=== PATIENT | female | born 1980 | race Hispanic/Latino ===

== ENCOUNTER 2018-01-21 17:05 | Emergency (ER) | payer OTHER ==
[2018-01-21 17:15] VITALS: O2SAT 99
[2018-01-21 18:19] LABS: BASO # 0.1 K/uL (0.0-0.2); BASO % 1.2 % (0.0-2.0); EOS # 0.1 K/uL (0.0-0.7); EOS % 1.5 % (0.0-4.0); HEMOGLOBIN 12.5 g/dL (12.0-16.0); LYMPH # 2.2 K/uL (1.0-4.3); LYMPH % 29.2 % (20.0-40.0); MEAN CORPUSCULAR HEMOGLOBIN 29.9 pg (27.0-31.0); MONO # 0.5 K/uL (0.0-0.8); MONO % 6.3 % (0.0-10.0); NEUT # 4.8 K/uL (1.8-7.0); NEUT % 61.8 % (50.0-75.0); NRBC % 0.1 % (0.0-0.0); RBC 4.16 Mil/uL (3.80-5.20); WHITE BLOOD COUNT 7.7 K/uL (4.8-10.8)
[2018-01-21] MEDS: Lactated Ringer's 1,000 ML IV SCH ×3 (18:25→20:36)
[2018-01-21 18:27] LABS: ALB/GLOB RATIO 1.1 (1.0-2.1); ALBUMIN 3.8 g/dL (3.5-5.0); ALT/SGPT 32 U/L (9-52); AST/SGOT 27 U/L (14-36); BLOOD UREA NITROGEN 14 mg/dl (7-17); CALCIUM 9.2 mg/dL (8.4-10.2); GFR AFRICAN-AMERICAN > 60; GFR NON-AFRICAN AMERICAN > 60
[2018-01-21 19:01] LABS: SQUAMOUS EPITHIAL 1 /hpf (0-5); URINE BACTERIA RARE (<OCC); URINE BILIRUBIN NEGATIVE (NEGATIVE); URINE BLOOD NEGATIVE (NEGATIVE); URINE CLARITY CLEAR (Clear); URINE COLOR YELLOW (YELLOW); URINE GLUCOSE (UA) NEG (Normal); URINE LEUKOCYTE ESTERASE NEG Leu/uL (Negative); URINE PROTEIN NEGATIVE (NEGATIVE)
--- NOTE | 2018-01-21 19:59 | ED PDOC ---
HPI:Nausea, Vomiting, Diarrhea Time Seen by Provider: 01/21/18 17:11 Chief Complaint (Nursing): GI Problem Past Medical History Vital Signs: Last Vital Signs Temp 98.2 F 01/21/18 17:12 Pulse 77 01/21/18 17:12 Resp 16 01/21/18 17:12 BP 121/86 01/21/18 17:12 Pulse Ox 99 01/21/18 17:12 - Home Medications Home Medications: Ambulatory Orders Medication Instructions Recorded Metoclopramide [Reglan] 5 mg PO Q8H #30 tab 01/21/18 - Allergies Allergies/Adverse Reactions: Allergies Allergy/AdvReac Type Severity Reaction Status Date / Time No Known Allergies Allergy Verified 01/21/18 17:12 - Laboratory Results Result Diagrams: 01/21/18 18:08 01/21/18 18:08 - ECG O2 Sat by Pulse Oximetry: 99 Medical Decision Making Medical Decision Making: Discussed labs with patients OB Dr. Lorenzo. Follow-up with Dr. Lorenzo next week. Will give Rx for reglan. Disposition - Clinical Impression Clinical Impression: Hyperemesis gravidarum - Patient ED Disposition Is Patient to be Admitted: No Counseled Patient/Family Regarding: Diagnosis, Need For Followup, Rx Given - Disposition Referrals: Katina Lorenzo MD [Medical Doctor] - Disposition: Routine/Home Disposition Time: 19:58 Condition: STABLE Prescriptions: Metoclopramide [Reglan] 5 mg PO Q8H #30 tab Instructions: Hyperemesis Gravidarum
[2018-01-21 20:20] VITALS: BP 122/70; PULSE 71; RESP 18; TEMP 98.1
== END 2018-01-21 20:51 | disposition home or self-care (01) ==
LOC: H.ER 17:05
DX: O21.0 Mild hyperemesis gravidarum (principal)
CPT/HCPCS: 80053; 81003; 84439; 84443; 85025; 87086; 96361; 96374; 99284; J2765; J7120

== ENCOUNTER 2018-02-28 04:43 | Emergency (ER) | payer OTHER ==
[2018-02-28 04:57] VITALS: RESP 16; O2SAT 98
--- NOTE | 2018-02-28 05:12 | ED PDOC ---
HPI: Female Pain Time Seen by Provider: 02/28/18 04:58 Chief Complaint (Nursing): Female Genitourinary History Per: Patient History/Exam Limitations: no limitations Additional Complaint(s): 37 yo F 15 wks , c/o small amount of vaginal bleeding early this morning without abdominal pain. Reports no fever, chills, N/V, urinary symptoms. Has had a prior US, has care. Past Medical History Vital Signs: Last Vital Signs Temp 98.5 F 02/28/18 04:54 Pulse 70 02/28/18 04:54 Resp 16 02/28/18 04:54 BP 126/59 L 02/28/18 04:54 Pulse Ox 98 02/28/18 04:54 - Family History Family History: States: Unknown Family Hx - Home Medications Home Medications: Ambulatory Orders Medication Instructions Recorded Metoclopramide [Reglan] 5 mg PO Q8H #30 tab 01/21/18 - Allergies Allergies/Adverse Reactions: Allergies Allergy/AdvReac Type Severity Reaction Status Date / Time No Known Allergies Allergy Verified 02/28/18 04:53 Review of Systems Constitutional: Negative for: Fever, Malaise Gastrointestinal: Negative for: Vomiting, Abdominal Pain Genitourinary Female: Positive for: Vaginal Bleeding. Negative for: Dysuria, Frequency Skin: Negative for: Rash, Lesions Physical Exam - Reviewed Vital Signs Reviewed: Yes - Physical Exam Appears: Positive for: Well, Non-toxic, No Acute Distress Head Exam: Positive for: ATRAUMATIC, NORMAL INSPECTION, NORMOCEPHALIC Skin: Positive for: Normal Color, Warm, DRY ENT: Positive for: Normal ENT Inspection Neck: Positive for: Normal, Painless ROM, Supple Cardiovascular/Chest: Positive for: Regular Rate, Rhythm Respiratory: Positive for: CNT, Normal Breath Sounds Gastrointestinal/Abdominal: Positive for: Normal Exam, Soft. Negative for: Tenderness Back: Positive for: Normal Inspection. Negative for: L CVA Tenderness, R CVA Tenderness, Vertebral Tenderness Extremity: Positive for: Normal ROM. Negative for: Tenderness, Swelling Neurologic/Psych: Positive for: Alert, hip hop dancer II-XII, Oriented. Negative for: Motor/Sensory Deficits - Laboratory Results Result Diagrams: 02/28/18 05:25 02/28/18 05:25 - ECG O2 Sat by Pulse Oximetry: 98 Medical Decision Making Medical Decision Making: Impression : threatened ab Plan : - Labs - IV - UA - US pelvic OB 0600 US still pending at this time. Patient laying in bed comfortably in no acute distress, reports no abdominal pain or increase in vaginal bleeding. Disposition - Clinical Impression Clinical Impression: Vaginal bleeding before 22 weeks gestation - Disposition Referrals: Katina Lorenzo MD [Primary Care Provider] - Disposition: Transfer of Care (Care endorsed from Dr. Mendez Costa to Dr. Riana Forrest at 0700 pending type&screen and ultrasound.) Disposition Time: 06:00 Condition: IMPROVED Additional Instructions: follow up with your primary furniture refinisher take vitamins with iron return to the ED with any worsening or concerning symptoms Instructions: Bleeding With (DC) Forms: [employer] ([place]) - PA / RESIDENTIAL CARE FACILITY MANAGER / Resident Statement MD/DO has reviewed & agrees with the documentation as recorded.
[2018-02-28 05:49] LABS: BASO % 0.8 % (0.0-2.0); EOS # 0.1 K/uL (0.0-0.7); EOS % 1.6 % (0.0-4.0); HEMOGLOBIN 11.3 g/dL (12.0-16.0); LYMPH # 1.8 K/uL (1.0-4.3); LYMPH % 31.8 % (20.0-40.0); MEAN CELL VOLUME 87.3 fl (81.0-99.0); MEAN CORPUSCULAR HEMOGLOBIN 30.2 pg (27.0-31.0); MEAN CORPUSCULAR HGB CONC 34.6 g/dL (33.0-37.0); MEAN PLATELET VOLUME 7.2 fl (7.2-11.7); MONO # 0.4 K/uL (0.0-0.8); MONO % 7.2 % (0.0-10.0); NEUT # 3.2 K/uL (1.8-7.0); NEUT % 58.6 % (50.0-75.0); RBC 3.74 Mil/uL (3.80-5.20); RED CELL DISTRIBUTION WIDTH 13.3 % (11.5-14.5); WHITE BLOOD COUNT 5.5 K/uL (4.8-10.8)
[2018-02-28 05:58] LABS: BLOOD UREA NITROGEN 12 mg/dl (7-17); CALCIUM 8.9 mg/dL (8.4-10.2); GFR AFRICAN-AMERICAN > 60; GFR NON-AFRICAN AMERICAN > 60
--- NOTE | 2018-02-28 07:33 | ED PDOC ---
- Laboratory Results Result Diagrams: 02/28/18 05:25 02/28/18 05:25 - ECG O2 Sat by Pulse Oximetry: 98 Medical Decision Making Medical Decision Makin:00 Patient care endorsed from Dr. Mendez Costa to Dr. Riana Forrest pending type and screen and an ultra sound. 07:42 US OB FINDINGS: There is a latham fetus in the breech and transverse presentation. The heart rate was measured at 137 to 140 beats per minute. The average ultrasound age was measured at 15 weeks and 2 days. There's an adequate amount of amniotic fluid. The placenta is anterior in location. No placenta previa. The cervix is closed and measures 4.7 cm. IMPRESSION: 1. IUP as described. 09:14 Patient is RH positive. Pt aware of slight anemia, and is stable for discharge and outpatient follow up. Urine dip shows no infection. Scribe Attestation: Documented by Jina Gordon, acting as a scribe for Riana Forrest MD Provider Scribe Attestation: All medical entries made by the Scribe were at my direction and personally dictated by me. I have reviewed the chart and agree that the record accurately reflects my personal performance of the history, physical exam, medical decision making, and the department course for this patient. I have also personally directed, reviewed, and agree with the discharge instructions and disposition. Disposition - Clinical Impression Clinical Impression: Vaginal bleeding before 22 weeks gestation - POA Present On Arrival: None - Disposition Referrals: Katina Lorenzo MD [Primary Care Provider] - Disposition: Routine/Home Disposition Time: 09:00 Condition: IMPROVED Additional Instructions: follow up with your primary entry level business analyst take vitamins with iron return to the ED with any worsening or concerning symptoms Instructions: Bleeding With (DC) Forms: [employer] (Telugu)
[2018-02-28 09:39] VITALS: BP 114/62; PULSE 66; TEMP 98.4
--- NOTE | 2018-02-28 10:46 | US ---
PROCEDURE: Second trimester ultrasound HISTORY: 15 wks preg, vag bleeding COMPARISON: None available. TECHNIQUE: Standard protocol for this study/examination. FINDINGS: Variable presentation. Anterior Placenta. No evidence of abruption or previa Gestational age derived from LMP 15 weeks. GEOFF 08/22/2018. Gestational age derived from the following biometric parameters 15 weeks 2 days. GEOFF 08/20/2018. Biparietal diameter 3.01 cm Head circumference 11.04 cm Abdominal circumference 8.71 cm Femur length 1.76 cm Estimated weight 115.6 g Calculated cardiac rate 139 beats per min. Closed cervix measuring 4.70 cm IMPRESSION: Fifteen weeks 2 days live intrauterine gestation. Gestational concordance documented. Concordant results (preliminary interpretation) provided by [facility]. Procedure Completed: 07:00 Preliminary ([facility]) Report: Dictated and Authenticated: 07:42 Final Interpretation: 10:44 bold
== END 2018-02-28 09:35 | disposition home or self-care (01) ==
LOC: H.ER 04:43
DX: O20.0 Threatened abortion (principal); Z36.9 Encounter for antenatal screening, unspecified; Z3A.15 15 weeks gestation of pregnancy; O20.9 Hemorrhage in early pregnancy, unspecified

== ENCOUNTER 2018-06-10 14:30 | Emergency (ER) | payer OTHER ==
[2018-06-10 15:00] VITALS: BMI 30.4
[2018-06-10 15:56] LABS: SQUAMOUS EPITHIAL 6 /hpf (0-5); URINE BACTERIA RARE (<OCC); URINE BILIRUBIN NEGATIVE (NEGATIVE); URINE BLOOD NEGATIVE (NEGATIVE); URINE CLARITY CLEAR (Clear); URINE COLOR YELLOW (YELLOW); URINE GLUCOSE (UA) NEG (Normal); URINE LEUKOCYTE ESTERASE NEG Leu/uL (Negative); URINE PROTEIN NEGATIVE (NEGATIVE); URINE UROBILINOGEN 0.2-1.0 mg/dL (0.2-1.0)
[2018-06-10 20:46] VITALS: BP 136/64; PULSE 93; RESP 18; TEMP 98.6; O2SAT 98
--- NOTE | 2018-06-11 11:56 | OBHP ---
Datetime: 06/10/2018 15:30 IP Adm Impression: , intrauterine ; No Active Labor; Intact Membranes IP Chief Complaint Other: vaginal discharge IP Admit Plan: Discharge home Admit Comment, IP Provider: 38yo G 1P0 IUP at 29w c/o vaginal discharge muscousy/scant blood noted a fter urinating. She had some nausea - toook Reglan. Drank some coffee early this morning. No CTX b ut some lower abd discomfort on and off for a few days. +FM PNC: CP / Dr Lorenzo AMA PMH: Anxiety PSH: Appy; Tonsillectomy NKA POBH: G1 no STD A: IUP at 29w No evid VB/PTL PLAN: spoke to Dr Lorenzo...will check UA Condition explained to pt and she understands Abdomen - PN: Normal General - PN: Normal FHR - Baseline A Provider: 150 Contraction Comments Provider: 0 Comments, ACOG Physical Exam: Speculum exam : no VB; no discharge no bleeding; cervix closed IP Hx Assessment: The History has been Reviewed and is Current EGA AdmitDate IP: 29.6 IP Chief Complaint: Other NICHD Variability Prov Fetus A: Moderate 6-25bpm NICHD Accel Fetus A IP Provider: 15X15 FHR Category Provider Fetus A: Category I NICHD Decel Fetus A IP Provider: None Dilatation, Provider: 0 Genitourinary Exam: Normal
--- NOTE | 2018-06-11 11:58 | OBDCSUM ---
Datetime: 06/10/2018 16:36 Discharge Diagnosis, Provider: False Labor - Undelivered Disch Activity Restrictions: No sexual activity; Nothing in vagina - [place], tampons, douche
== END 2018-06-10 16:44 | disposition home or self-care (01) ==
LOC: H.EROB2 14:30
DX: O47.1 False labor at or after 37 completed weeks of gestation (principal); O26.853 Spotting complicating pregnancy, third trimester; R11.0 Nausea; R10.2 Pelvic and perineal pain; Z3A.29 29 weeks gestation of pregnancy

== ENCOUNTER 2018-07-04 15:40 | Emergency (ER) | payer OTHER ==
--- NOTE | 2018-07-04 17:47 | OBHP ---
Datetime: 07/04/2018 16:48 IP Adm Impression: , intrauterine IP Admit Plan: Observation/Evaluation; Discharge home Admit Comment, IP Provider: 38 yo with IUP @ 33.2 weeks (based on GEOFF of 08/20/18) presents bec ause of decreased movement associated with bloody discharge and lower pelvic pain radiating to the back. She reports using Monistat for two days because of a yeast infection. She now reports good movement while in the hospital. She denies profuse vaginal bleeding, contractions, and loss of vaginal fluid. Last sexual activity was 1 week ago. ROS: 12 point system reviewed and negative except for above. OBhx: Follows with Dr. Lorenzo. Last visit was 3 weeks ago and last u/s was last . Next visi t 07/05/18; Anterior placenta as per patient from previous ultrasound. PMH: Hyperemesis and exercise induced asthma. Social history: Denies smoking history, alcohol use or illicit drug use. Fam Hx: Allergies: N.K.D.A Surgical history: Appendectomy- 2009 _ Tonsillectomy- 2012 Medications: PNV; Lamotrigine for depression and reglan for hyperemesis Labs: unknown Physical exam: Patient is in minor discomfort. No acute distress. Heart: S1 and S2. No murmurs, gallops or rubs. Lungs: Clear air entry bilaterally. Abdomen: Gravid, Soft, non-tender on palpation Vaginal exam: Not examined given and patient is no longer complaining of vaginal bleeding or decreased movement. FHT: 150 baseline; Moderate variability; Accelerations x2 visualized in a 20 min strip. No deceler ations. Category 1 strip. Assessment: 38 yo with IUP @ 33.2 weeks (based on GEOFF of 08/20/18) presents because of decrea sed movement associated with bloody discharge and lower pelvic pain radiating to the back Plan: - Observe FHT- Reassuring tracing over 20 minutes. - Patient can be discharged given reactive FHT in 20 minute period. - Labor precautions given to the patient. Discussed with Dr. Rendon ---Elizabeth Romero, PGY-1 Family Medicine Addendum by Dr. Rendon: I have evaluated the patient independently and I agree with the above Pelvic Type - PN: Adequate Extremities - PN: Normal Abdomen - PN: Normal Back - PN: Normal Breast - PN: Not Done Lungs - PN: Normal Heart - PN: Normal Thyroid - PN: Not Done Neurologic - PN: Not Done HEENT - PN: Not Done General - PN: Normal FHR - Baseline A Provider: 145 EGA AdmitDate IP: 33.2 Vital Signs Provider: Reviewed; Within Normal Limits IP Chief Complaint: Decreased movement; Maternal discomfort NICHD Variability Prov Fetus A: Moderate 6-25bpm NICHD Accel Fetus A IP Provider: 15X15 FHR Category Provider Fetus A: Category I NICHD Decel Fetus A IP Provider: None Genitourinary Exam: Normal DTRs - PN: Not Done
--- NOTE | 2018-07-04 17:49 | OBDCSUM ---
Datetime: 07/04/2018 16:45 Discharged to, Provider: Home Follow up at, Provider: Dr Lorenzo Disch Instr Activity: Normal activity Disch Instr Diet: Regular Discharge Time: 07/04/2018 16:45 Follow up in weeks, Provider: 07/05/2018 Disch Referrals: None Discharge Diagnosis Prov Other: decreased movement
[2018-07-04 20:55] VITALS: BP 127/74; PULSE 92; RESP 18; TEMP 97.9
== END 2018-07-04 16:50 | disposition home or self-care (01) ==
LOC: H.EROB2 15:40
DX: O36.8130 Decreased fetal movements, third trimester, not applicable or unspecified (principal); O26.93 Pregnancy related conditions, unspecified, third trimester; R10.2 Pelvic and perineal pain; O26.853 Spotting complicating pregnancy, third trimester; Z3A.33 33 weeks gestation of pregnancy

== ENCOUNTER 2018-07-18 14:44 | Emergency (ER) | payer OTHER ==
[2018-07-18 15:02] VITALS: BMI 31.6
[2018-07-18 15:54] LABS: HEMOGLOBIN 10.6 g/dL (12.0-16.0); MEAN CELL VOLUME 82.3 fl (81.0-99.0); MEAN CORPUSCULAR HEMOGLOBIN 27.9 pg (27.0-31.0); MEAN CORPUSCULAR HGB CONC 33.9 g/dL (33.0-37.0); RBC 3.8 Mil/uL (3.80-5.20); RED CELL DISTRIBUTION WIDTH 13.4 % (11.5-14.5); WHITE BLOOD COUNT 7.4 K/uL (4.8-10.8)
[2018-07-18 16:01] LABS: INR 0.9
[2018-07-18 16:04] LABS: PARTIAL THROMBOPLASTIN TIME 26.7 Seconds (25.6-37.1)
[2018-07-18 16:14] LABS: ALBUMIN 3.2 g/dL (3.5-5.0); ALT/SGPT 43 U/L (9-52); AST/SGOT 37 U/L (14-36); BILIRUBIN,DIRECT 0.1 mg/ml (0.0-0.4); BLOOD UREA NITROGEN 9 mg/dl (7-17); CALCIUM 8.9 mg/dL (8.4-10.2); GFR NON-AFRICAN AMERICAN > 60; URIC ACID 5.8 mg/Dl (2.2-7.5)
[2018-07-18 17:10] LABS: PROTHROMBIN TIME 9.9 Seconds (9.8-13.1)
[2018-07-18 17:34] LABS: SQUAMOUS EPITHIAL < 1 /hpf (0-5); URINE BILIRUBIN NEGATIVE (NEGATIVE); URINE BLOOD SMALL (NEGATIVE); URINE CLARITY CLEAR (Clear); URINE COLOR STRAW (YELLOW); URINE GLUCOSE (UA) NEG (Normal); URINE LEUKOCYTE ESTERASE NEG Leu/uL (Negative); URINE PROTEIN NEGATIVE (NEGATIVE); URINE UROBILINOGEN 0.2-1.0 mg/dL (0.2-1.0)
--- NOTE | 2018-07-18 18:58 | OBHP ---
Datetime: 07/18/2018 16:06 IP Adm Impression: , intrauterine IP Admit Plan: Observation/Evaluation; Discharge home Admit Comment, IP Provider: 38-year-old at 35.2 (confirmed via 1st Tri U/S at 8 weeks and LMP ) presents from Dr Gonzalez's office for high blood pressure readings in office (150/97, as per patient). Patient denies loss of fluid, vaginal bleeding, contractions, change in vision, dizziness, chest pain, difficulty breathing, shortness of breath, vomiting, diarrhea and constipation. She admi ts to a headache a few days back and also feeling more swollen in her hands and feet than normal. Pre gnancy has been complicated thus far by uncontrolled GDM. She has also struggled with nausea througho ut and is currently taking Dr Gonzalez put her on Metformin 500 daily but she was unable t o tolerate it for more than three days. Her fasting lood sugar log ranges from 80's-130's. Patient re ports total weight gain this thus far is 40lbs. : [facility] - Dr. Lisa Lorenzo PMH: Asthma (exercise-induced, rescue inhaler), depression, anxiety FHx: Father DM2, Prostate Ca Meds: Wellbutrin 300mg, Cymbalta 60 mg (stopped 1 month ago), Reglan for nausea OBGYN Hx: Mirena IUD prior to Social: denies alcohol, illicit drug use, tobacco Labs: Blood Type: O+ (antibody neg) Rubella: negative, not immune HbsAg: neg (1st tri) GBS: unknown GC/CL: unknown RPR: neg (1st tri) HIV: neg (1st tri) ROS: Denies change in vision, dizziness, chest pain, difficulty breathing, shortness of breath, na usea, vomiting, diarrhea and constipation. PE: comfortable, in no acute distress Resp: no respiratory distress, good air entry Abd: no tenderness to palpation Extremity: no pitting edema Assessment: 38-year-old at 35.2 (confirmed via 1st Tri U/S at 8 weeks and LMP 11/13/17) danny jay from Dr Gonzalez's office for high blood pressure readings in office (150/97, as per patient). Plan: -Continuous EFM -Monitor BP -Lab workup for PIH: WNL -Patient educated on signs and symptoms warranting emergent visit back to ED. -Follow up with routine appointments as scheduled Case seen and discussed with Dr Rendon. ---Beth Gonzales MD PGY1 [facility] Family Medicine Addendum by Dr. Rendon: Patient evaluated independently and I agree with the above. Pelvic Type - PN: Not Done Extremities - PN: Normal Abdomen - PN: Normal Back - PN: Not Done Breast - PN: Not Done Lungs - PN: Normal Heart - PN: Normal Thyroid - PN: Not Done Neurologic - PN: Not Done HEENT - PN: Normal FHR - Baseline A Provider: 140 EGA AdmitDate IP: 35.0 Vital Signs Provider: Reviewed; Within Normal Limits IP Chief Complaint: Signs/Symptoms Gestational HTN NICHD Variability Prov Fetus A: Moderate 6-25bpm NICHD Accel Fetus A IP Provider: 15X15 FHR Category Provider Fetus A: Category I NICHD Decel Fetus A IP Provider: None Genitourinary Exam: Not Done DTRs - PN: Not Done
--- NOTE | 2018-07-18 19:01 | OBDCSUM ---
Datetime: 07/18/2018 17:51 Discharged to, Provider: Home Follow up at, Provider: Dr Jesus Lorenzo Disch Instr Activity: Normal activity Disch Instr Diet: Regular Discharge Time: 07/18/2018 17:51 Follow up in weeks, Provider: adriana OB visit 07/19/2018 Disch Referrals: None Discharge Diagnosis Prov Other: rule out pre-eclampsia
[2018-07-18 22:31] VITALS: BP 127/75; PULSE 84; TEMP 98.5
== END 2018-07-18 17:45 | disposition home or self-care (01) ==
LOC: H.EROB2 14:44
DX: O13.3 Gestational [pregnancy-induced] hypertension without significant proteinuria, third trimester (principal); Z3A.35 35 weeks gestation of pregnancy; O99.513 Diseases of the respiratory system complicating pregnancy, third trimester; J45.909 Unspecified asthma, uncomplicated

== ENCOUNTER 2018-07-26 22:01 | Emergency (ER) | payer OTHER ==
[2018-07-26 22:58] VITALS: BMI 31.3
[2018-07-26 23:57] LABS: HEMOGLOBIN 10.7 g/dL (12.0-16.0); MEAN CELL VOLUME 80.6 fl (81.0-99.0); MEAN CORPUSCULAR HEMOGLOBIN 27.4 pg (27.0-31.0); RBC 3.91 Mil/uL (3.80-5.20); RED CELL DISTRIBUTION WIDTH 13.7 % (11.5-14.5); WHITE BLOOD COUNT 7.2 K/uL (4.8-10.8)
[2018-07-27 00:05] LABS: SQUAMOUS EPITHIAL 2 /hpf (0-5); URINE BACTERIA RARE (<OCC); URINE BILIRUBIN NEGATIVE (NEGATIVE); URINE BLOOD MODERATE (NEGATIVE); URINE CLARITY SLIGHTY-CLOUDY (Clear); URINE COLOR YELLOW (YELLOW); URINE GLUCOSE (UA) NEG (Normal); URINE LEUKOCYTE ESTERASE NEG Leu/uL (Negative); URINE PROTEIN NEGATIVE (NEGATIVE); URINE UROBILINOGEN 0.2-1.0 mg/dL (0.2-1.0)
[2018-07-27 00:10] LABS: ALBUMIN 3.2 g/dL (3.5-5.0); ALT/SGPT 21 U/L (9-52); AMYLASE 89 U/L (30-110); AST/SGOT 21 U/L (14-36); BLOOD UREA NITROGEN 17 mg/dl (7-17); GFR NON-AFRICAN AMERICAN > 60; URIC ACID 5.8 mg/Dl (2.2-7.5)
[2018-07-27 05:04] VITALS: BP 132/85; PULSE 79; RESP 16; TEMP 98.7; O2SAT 100
--- NOTE | 2018-07-27 09:01 | OBHP ---
Datetime: 07/27/2018 00:46 IP Admit Plan: Discharge home FHR - Baseline A Provider: 145 EGA AdmitDate IP: 36.1 Vital Signs Provider: Reviewed; Within Normal Limits IP Chief Complaint: Signs/Symptoms Gestational HTN; Maternal discomfort NICHD Variability Prov Fetus A: Moderate 6-25bpm NICHD Accel Fetus A IP Provider: 15X15 FHR Category Provider Fetus A: Category I NICHD Decel Fetus A IP Provider: None Datetime: 07/26/2018 23:10 IP Adm Impression: , intrauterine ; Intact Membranes Admit Comment, IP Provider: 38 yo with IUP @ 36.1 (based on GEOFF 08/22/18) complicated by GDM an d AMA presents to OB ED because of elevated BP readings at home. Patient follows with Dr. Lorenzo and w as told that if she had blood pressure consistently elevated >140/90 to visit the OB ED. She reports that she has had consistent elevated BP 130-154 / 90-105 since 3:30 pm. She measures her BP at home w ith a home monitor. Associated symptoms with elevated BP today include headaches, dizziness, shortnes s of breath and RUQ pain. Patient denies chest pain, blurry vision or changes in vision, diarrhea, fe vers and dysuria. ROS: systems reviewed and negative except for above in HPI. ObHx: GDM- no insulin use as of yet. AMA. Hyperemesis Gravidarum as per patient PMHx: Exercise induced asthma; Depression; ADHD Family Hx: Multiple cancers in the family; Father with DM2 Social: Denies drinking, smoking history and alcohol use. Surgical history: Appendectomy: 2009 and Tonsilectomy: 2011 Allergies: N.K.D.A Medications: PNV; Lamotrigine; Wellbutrin; Zoloft Labs: HIV: Negative in January 2018 HbsAg: Negative Rubella: Non-immune RPR: negative ABO: O+ Antibody: Negative Physical exam: No acute distress. Heart: S1 and S2 appreciated on exam. No murmurs, gallops or rubs. Lungs: Clear air entry bilaterally. No wheezes, rhonchi or crackles on exam. Abdomen: None acute abdomen; Soft, RUQ minor tenderness to palpation. Negative Grace's sign. Grav id. No CVA tenderness. FHT: 150 baseline; Moderate variability; Accelerations present; No Decelerations. Category 1 yasemin ng. Assessment: 38 yo with IUP @ 36.1 complicated by GDM and AMA presents to OB ED to EVAL FOR p re-eclampsia. Plan: - Reassuring FHT: 150 baseline; moderate variability; Accelerations present; No decelerations; Cat egory 1 tracing. - Continue monitoring - PO liquids. - CBC - CMP - urinalysis - fibrinogen - Uric acid - Amylase - Dr. Lorenzo was contacted and informed about patient. Case Discussed with Dr. Madrid ----Elizabeth Romero, PGY1 Inhalation Therapist. OB Hospitalist on-call. Spoke to pt, agree with note (FHR 140's/reactive), spoke with Dr Lorenzo - order labs and montior BP. Preeclampsia warning given. She understood. Seened frutrated because he r BP machine at home showed elevated BP. MAHNDO Pelvic Type - PN: Adequate Extremities - PN: Normal Abdomen - PN: Normal Back - PN: Normal Breast - PN: Not Done Lungs - PN: Normal Heart - PN: Normal Thyroid - PN: Not Done Neurologic - PN: Not Done HEENT - PN: Not Done General - PN: Normal Presentation-Admit: Vertex Membranes, Provider: Intact Contraction Comments Provider: irregular IP Hx Assessment: The History has been Reviewed and is Current Genitourinary Exam: Normal DTRs - PN: Not Done
--- NOTE | 2018-07-27 09:03 | OBHP ---
Datetime: 07/27/2018 00:46 Admit Comment, IP Provider: S: 38 yo with IUP @ 36.1 (based on GEOFF 08/22/18) complicated by GDM and AMA presents to OB ED because of elevated BP readings at home. Patient reports feeling okay and states she has a minor headache now but her dizziness has subsided. Physical exam: No acute distress. FHT: 145 baseline; Moderate variability; Accelerations present; No Decelerations. Category 1 yasemin ng. Assessment: 38 yo with IUP @ 36.1 complicated by GDM and AMA presents to OB ED to rule out pr e-eclampsia. Plan: - Reassuring FHT: 145 baseline; moderate variability; Accelerations present; No decelerations; Cat egory 1 tracing. - Given unremarkable labs and stable blood pressures while being observed and monitored, patient i s stable for discharge and given labor precautions. Case Discussed with Dr. Madrid ----Elizabeth Romero, PGY1 Group Account Director. OB Hospitalist note. labs rev' d and discharge home MARCELA BLUM AdmitDate IP: 36.1
--- NOTE | 2018-07-27 09:07 | OBDCSUM ---
Datetime: 07/27/2018 00:45 Discharged to, Provider: Home Follow up at, Provider: Dr. Lorenzo Disch Instr Activity: Normal activity Disch Instr Diet: Regular Discharge Time: 07/27/2018 00:45 Follow up in weeks, Provider: August 05 for scheduled appointment Disch Referrals: None Discharge Diagnosis Prov Other: No signs of pre-eclampsia
== END 2018-07-27 00:58 | disposition home or self-care (01) ==
LOC: H.EROB2 22:01
DX: O24.419 Gestational diabetes mellitus in pregnancy, unspecified control (principal); Z3A.36 36 weeks gestation of pregnancy; O21.0 Mild hyperemesis gravidarum; O09.513 Supervision of elderly primigravida, third trimester

== ENCOUNTER 2018-07-28 14:26 | Inpatient (IN) | payer OTHER ==
[2018-07-28 14:19] VITALS: BMI 32.1
[2018-07-28] MEDS: Lactated Ringer's 1,000 ML IV ONE ×2 (14:40→15:15)
[2018-07-28] MEDS ORDERED: ceFAZolin 2 GM in Sodium Chloride 0.9% 100 ML IVPB ONE (14:43)
[2018-07-28] MEDS ORDERED: Oxytocin 30 UNIT 30 UNITS/500 ML BAG IV ONE ×2 (14:49→19:48)
[2018-07-28 14:57] VITALS: O2SAT 99
[2018-07-28] MEDS ORDERED: OXYTOCIN/0.9 % NS 20 UNIT/1,000 ML BAG IV SCH (15:00)
[2018-07-28] MEDS ORDERED: Betamethasone Soluspan 30 mg/5mL Inj Susp IM ONE (15:00)
[2018-07-28] MEDS ORDERED: Lactated Ringer's 1,000 ML IV SCH (15:00)
[2018-07-28 15:50] LABS: BASO % 0.5 % (0.0-2.0); EOS % 0.3 % (0.0-4.0); HEMOGLOBIN 10.4 g/dL (12.0-16.0); LYMPH # 1.9 K/uL (1.0-4.3); MEAN CELL VOLUME 82.2 fl (81.0-99.0); MEAN CORPUSCULAR HGB CONC 32.8 g/dL (33.0-37.0); MONO # 0.6 K/uL (0.0-0.8); MONO % 8.3 % (0.0-10.0); NEUT # 4.7 K/uL (1.8-7.0); NEUT % 64.9 % (50.0-75.0); NRBC % 0.2 % (0.0-0.0); RBC 3.84 Mil/uL (3.80-5.20); RED CELL DISTRIBUTION WIDTH 13.8 % (11.5-14.5); WHITE BLOOD COUNT 7.3 K/uL (4.8-10.8)
[2018-07-28 17:38] LABS: PARTIAL THROMBOPLASTIN TIME 24.8 Seconds (25.6-37.1)
[2018-07-28 17:43] LABS: ALB/GLOB RATIO 0.9 (1.0-2.1); ALT/SGPT 26 U/L (9-52); AST/SGOT 20 U/L (14-36); BLOOD UREA NITROGEN 12 mg/dl (7-17); CALCIUM 8.7 mg/dL (8.4-10.2); GFR NON-AFRICAN AMERICAN > 60; URIC ACID 5.9 mg/Dl (2.2-7.5)
--- NOTE | 2018-07-28 18:19 | OBADHP ---
Datetime: 07/28/2018 18:13 Admit Comment, IP Provider: @ 36.3 wks GA with preeclamsia seen by MFM this mornign and recomme dn delivery due to elevated and labile bp and intermitten hedahce with blurry visin. pt reprots irreu glar ctx, glenny vb, +FM. pt reprots intermitted ruq pain densi nause, vomitng, fever, chills, sob, ch epst pain, dizzyness OB: P0 BUSINESS DIRECTOR: Dneis PMH: Depression/anexity PSH: appendecmy FHX: non contibyr MEDS: PNV NKDA SOXH: negaitve eoth/tobacc/drugs A/P @ 36.3 wks with preeclampisa with severe features r/b/a/i of iol vs cxs discsused and cousned by MFM, pt opted for Cx consentoboated admit preeclmap labs vs q 15 min, iv labelte push mageinsu sulfate celestone preop aneibnhc bryson scds or/aenstheis aware r/ba/i of prematury dw pateitn Pelvic Type - PN: Adequate Extremities - PN: Normal Abdomen - PN: Normal Back - PN: Normal Breast - PN: Not Done Lungs - PN: Normal Heart - PN: Normal Thyroid - PN: Not Done Neurologic - PN: Normal HEENT - PN: Normal General - PN: Normal Presentation-Admit: Vertex FHR - Baseline A Provider: 150 Membranes, Provider: Intact Contraction Comments Provider: q 3-5 min Gestation - Est Wks by US: 36.3 IP Hx Assessment: The History has been Reviewed and is Current Vital Signs Provider: Reviewed Vital Signs Provider Details: 160/94 IP Chief Complaint: Signs/Symptoms Gestational HTN NICHD Variability Prov Fetus A: Moderate 6-25bpm FHR Category Provider Fetus A: Category I NICHD Decel Fetus A IP Provider: None Dilatation, Provider: 0 Effacement, Provider: 0 Station, Provider: -3 Genitourinary Exam: Normal DTRs - PN: Normal EGA AdmitDate IP: 36.3 IP Adm Impression: , intrauterine IP Admit Plan: Admit to unit Datetime: 07/27/2018 00:46 NICHD Accel Fetus A IP Provider: 15X15 Datetime: 06/10/2018 15:30 IP Chief Complaint Other: vaginal discharge Comments, ACOG Physical Exam: Speculum exam : no VB; no discharge no bleeding; cervix closed
[2018-07-28] MEDS ORDERED: DiphenhydrAMINE 50 mg/ml Inj IVP PRN ×2 (19:20→23:51)
[2018-07-28] MEDS ORDERED: ceFAZolin IV 2 gm in Dextrose 2 GM/50 ML BAG IVPB SCH (19:45)
[2018-07-28] MEDS ORDERED: Bisacodyl 5mg EC Tab PO PRN ×2 (19:48→23:51)
[2018-07-28] MEDS ORDERED: Oxycodone/Acetaminophen 5/325 mg Tab PO PRN ×3 (19:48→23:51)
--- NOTE | 2018-07-28 19:49 | OBDS ---
DELIVERY PERSONNEL Scrub Nurse: Marisabel Palma [employer] Consultant: Jordon RN, La RN Anesthesiologist: El Lewis MD MATERNAL INFORMATION Delivery Anesthesia: Spinal Medications in Delivery: pitocin 30 units/500ml, ancef 2g/5ml Estimated Blood Loss (ml): 800 Placenta Cultured: Yes Maternal Complications: None Provider Comments: primaty low tranfe cxs preeclap with sever efeatures girl apgers 9,9 pediatirin presnet for deliveyr ebl 800ml LABOR SUMMARY EDC: 08/22/2018 00:00 No. Babies in Womb: 1 Attempted: No LABOR INFORMATION Reason for Induction: Gest. HTN/PreEclampsia/Eclampsia Oxytocin: N/A Group B Beta Strep: Done, Result Unknown (Annotations: 07/26/18) Antibiotics # of Doses: 0 Antibiotics Time of Last Dose: n/a MEMBRANES Membranes Rupture Method: Artificial Amniotic Fluid Color: Clear Amniotic Fluid Amount: Small STAGES OF LABOR Stage 3 hrs: 0 Stage 3 min: 3 CSECTION DELIVERY Primary Indication: Other Other Primary Indication: Preeclamptic Secondary Indication: Other Other Secondary Indication: GDM CSection Urgency: Emergency CSection Incidence: Primary Labor: No Labor BABY A INFORMATION Infant Delivery Date/Time: 07/28/2018 18:55 Method of Delivery: Born in Route : No : N/A Forceps: N/A Vacuum Extraction: N/A Shoulder Dystocia : No SHOULDER DYSTOCIA BABY A Delivery Date/Time: 07/28/2018 18:55 PRESENTATION/POSITION BABY A Presentation: Cephalic Cephalic Presentation: Vertex Breech Presentation: N/A PLACENTA INFORMATION BABY A Placenta Delivery Time : 07/28/2018 18:58 Placenta Method of Delivery: Manual Removal Placenta Status: Delivered SCORES BABY A Heart Rate 1 min: >100 bpm Resp Effort 1 min: Good Cry Reflex Irritability 1 min: Cough or Sneeze or Pulls Away Muscle Tone 1 min: Active Motion Color 1 min: Body [place], Extremities Blue Resuscitation Effort 1 min: N/A SCORE 1 MIN: 9 Heart Rate 5 min: >100 bpm Resp Effort 5 min: Good Cry Reflex Irritability 5 min: Cough or Sneeze or Pulls Away Muscle Tone 5 min: Active Motion Color 5 min: Body [place], Extremities Blue Resuscitation Effort 5 min: N/A SCORE 5 MIN: 9 INFANT INFORMATION BABY A Gestational Age at Delivery: 36.3 Gestational Status: Outcome : Liveborn Condition : Stable Infant Sex: Female IDENTIFICATION/MEDS BABY A ID Band Number: [id number] ID Band Location: Left Leg; Left Arm WEIGHT/LENGTH BABY A Birthweight (gms): 2800 Infant Weight (lb): 6 Infant Weight (oz): 3 CORD INFORMATION BABY A No. Cord Vessels: 3 Nuchal Cord : N/A Cord Blood Taken: Yes Infant Suction: None
[2018-07-28] MEDS ORDERED: Simethicone 80 mg Chewtab PO SCH (22:00)
[2018-07-29] MEDS: Simethicone 80 mg Chewtab PO SCH ×4 (04:32→21:41)
--- NOTE | 2018-07-29 05:24 | OP ---
PROCEDURE DATE: 07/28/2018 SURGEON: Katina Lorenzo MD DIRECTOR OF ADMISSIONS: Asif Hameed MD PREOPERATIVE DIAGNOSES: intrauterine ; preeclampsia with severe features; also with gestational diabetes, poorly controlled, noncompliant. POSTOPERATIVE DIAGNOSES: intrauterine ; preeclampsia with severe features; also with gestational diabetes, poorly controlled, noncompliant. PROCEDURE PERFORMED: Primary low-transverse section. ESTIMATED BLOOD LOSS: 800 mL. OPERATIVE FINDINGS: Live female , Apgars 9 and 9. Normal-appearing uterus, tubes, and ovaries. Cephalic presentation. Airport Operations Specialist present for delivery. Dr. Asif Hameed, surgical supervisor was present for the entire case, essentially in gaining entry, retraction, exposure, holding the bladder blade, helping to close all layers, and was present for the entire case. ANESTHESIA: Spinal. COMPLICATIONS: None. DESCRIPTION OF PROCEDURE: The patient was taken to the operating room where she had informed consent. She was transferred to the operating room where she was given spinal anesthesia. Once it was found to be adequate, she was positioned on the operating table in dorsal supine position. The patient was then prepped and draped in the usual sterile fashion. A time-out confirmed correct patient and correct procedure. The patient was given preoperative prophylactic antibiotics. A Pfannenstiel skin incision was made with a scalpel, carried down to the underlying fascia with the Bovie. The fascia was incised in the midline and incision was extended laterally with the Bovie. Inferior aspect of the fascial incision was grasped with Allis and Kylie clamps, and the underlying rectus muscle was dissected off bluntly. Attention was then turned to the superior aspect, which in a similar fashion was grasped with Allis and Kylie clamps, and the underlying rectus muscles were dissected off bluntly. The rectus muscles were then bluntly in the midline. The peritoneum was identified and entered in clear space. The incision was extended laterally and superiorly until there was good visualization of the bladder. The lower end of the [place] was inserted. The vesicouterine peritoneum was incised with Metzenbaum scissors. The bladder flap was created digitally. The lower end of the Jacki was then reinserted. The lower uterine segment was incised in a transverse fashion. The uterine incision was extended laterally with bandage scissors. The surgeon's hand entered the uterine cavity. The infant's head was delivered atraumatically followed by delivery of shoulders, followed by delivery of body. Both oral and nasal passages of the baby were bulb suctioned. The umbilical cord was clamped and cut. Baby was handed off to the awaiting armature repairer. Cord blood and cord gases were collected and sent x2. The placenta was then delivered manually. The uterus was exteriorized of all clots and debris. The uterine incision was repaired with 0 Vicryl in a running continuous locked fashion. A second layer of same suture was used to close the uterus in a running imbricating manner. The uterus was then returned to the abdomen. Paracolic gutters were cleared of all clots and debris. There was good hemostasis at the uterine incision site. There was good hemostasis noted. The peritoneum was reapproximated with 2-0 chromic in a running continuous fashion. The rectus was reapproximated and closed with 2-0 chromic in an interrupted manner. The fascia was reapproximated and closed with 0 Vicryl in a running continuous fashion. The subcutaneous space was closed with 2-0 plain in an interrupted manner. The skin was reapproximated and closed with 4-0 Monocryl in a running subcuticular fashion. At the end of the procedure, all needle, sponge and instrument counts were noted to be correct x2. The patient tolerated the procedure well and was transferred to the recovery room in stable condition. Katina Lorenzo MD
[2018-07-29 07:16] LABS: HEMOGLOBIN 9.6 g/dL (12.0-16.0); MEAN CELL VOLUME 81.7 fl (81.0-99.0); MEAN CORPUSCULAR HEMOGLOBIN 26.6 pg (27.0-31.0); MEAN CORPUSCULAR HGB CONC 32.6 g/dL (33.0-37.0); RBC 3.62 Mil/uL (3.80-5.20); RED CELL DISTRIBUTION WIDTH 13.5 % (11.5-14.5); WHITE BLOOD COUNT 15.5 K/uL (4.8-10.8)
[2018-07-29] MEDS ORDERED: Multivitamin With Minerals Tab PO SCH (09:00)
[2018-07-29] MEDS: Oxycodone/Acetaminophen 5/325 mg Tab PO PRN ×3 (09:29→21:42)
[2018-07-29] MEDS: Multivitamin With Minerals Tab PO SCH (09:29)
[2018-07-30] MEDS: Simethicone 80 mg Chewtab PO SCH ×4 (03:49→22:34)
[2018-07-30] MEDS: Oxycodone/Acetaminophen 5/325 mg Tab PO PRN ×2 (08:11→16:06)
[2018-07-30] MEDS: Multivitamin With Minerals Tab PO SCH (08:11)
--- NOTE | 2018-07-30 10:23 | OBPPN ---
Datetime: 07/30/2018 10:05 PP Pain Prov: Within normal limits PP Nausea Prov: Denies PP Flatus Prov: Yes PP BM Prov: No PP Breasts Prov: Not Done PP Heart Prov: Normal PP Lungs Prov: Normal PP Abdomen/Uterus Prov: Normal PP Lochia Prov: Normal PP Vulva/Perineum Prov: Normal PP CVA Tenderness Prov: Not Done PP Extremities Prov: Normal PP C/S Incision Prov: Normal PP Progress Prov: Abnormal PP Comments Phys Exam Prov: 1+ edema LE PP Impression Prov: Normal progression; difficulties PP Plan Prov: Continue present management PP Progress Note Prov: Pt is a 38 y/o , POD#2 s/p at 36.3wks. Pt was seen and examined at bedside this AM. She had no complaints overnight. Pelvic pain is controlled pain medications. Pt is tolerating PO regular diet w/o complaints. She is ambulating as tolerated. Pt attending to breast feed, baby still has NG tube and IV. Lochia is similar to menses volume. Voiding w/o difficulty, no f oley. +Flatus _ -BM yet. Pt states her legs are more swollen than before the . She denies f/ c/n/v/CP/SOB, Lightheadedness O: BP: 138/91 Temp: 98.3F, HR: 80 PE: GEN: Lying in bed comfortably, NAD CVS: S1, S2, RRR LUNGS: CTA B/L ABD: +BS, soft with appropriate tenderness, fundus @ umbilical level; Dress c/d/i will be removed today EXT: 1+ edema noted NEURO: AAOx3 A/P: 38 y/o , POD #2 s/p at 36.3wks. -Continue regular diet as tolerated. -Encouraged ambulation as tolerated. -Encouraged . -Continue Ibuprofen 600mg Q6h, Percocet 5/325mg Q6hr PRN for pain management. -Colace/simethicone- Constipation/flatus -Considering IUD -Follow up with Dr. Lorenzo at [facility] in 1wk for wound check Case discussed with attending. -Dr. Nadiya Vidal PGY-1 OB Attending/hospitalist : Pt seen on rounds. Agree with note MARCELA UPTON PP Procedures: None Vital Signs Provider PP: Reviewed Vital Signs Provider Details PP: BP elevated
[2018-07-31] MEDS: Simethicone 80 mg Chewtab PO SCH ×4 (04:58→22:31)
[2018-07-31] MEDS: Multivitamin With Minerals Tab PO SCH (09:05)
[2018-07-31] MEDS: Oxycodone/Acetaminophen 5/325 mg Tab PO PRN (09:08)
--- NOTE | 2018-07-31 17:15 | OBPPN ---
Datetime: 07/31/2018 10:59 PP Pain Prov: Abnormal PP Nausea Prov: Denies PP Flatus Prov: Yes PP BM Prov: No PP Breasts Prov: Not Done PP Heart Prov: Normal PP Lungs Prov: Normal PP Abdomen/Uterus Prov: Normal PP Lochia Prov: Normal PP Vulva/Perineum Prov: Not Done PP CVA Tenderness Prov: Normal PP Extremities Prov: Normal PP C/S Incision Prov: Normal PP Progress Prov: Abnormal PP Impression Prov: Pain PP Plan Prov: Continue present management PP Progress Note Prov: Pt is a 38 y/o , POD#3 s/p at 36.3wks. Pt was seen and examined at bedside this AM. Patient reprots that abdominal pain is not improving. Patient still has moderate to severe pain for which she had to take ibuprofen and 2 percoecet yesterday. She still reports lowe r abdominal and incision site pain. She also reports mild headache that started 2-3 days ago and not completely resolving. Pt is tolerating PO regular diet w/o complaints. She is ambulating as tolerated. Pt attending to b reast feed, baby still has NG tube and IV. Lochia is similar to menses volume. Voiding w/o difficulty , no bryson. +Flatus _ -BM yet. She denies f/c/n/v/CP/SOB. O: BP: 152/91 Temp: 97.8F, HR: 72 PE: GEN: Mild distress CVS: S1, S2, RRR LUNGS: CTA B/L ABD: +BS, Incision C/D/I, + tenderness around incision site and lower abdomen. fundus @ umbilical level; Dressing removed. EXT: 1+ edema noted NEURO: AAOx3 A/P: 38 y/o , POD #3 s/p at 36.3wks. Patient with moderate to severe abdominal pain. -Continue regular diet as tolerated. -Encouraged ambulation as tolerated. -Encouraged . -Pain control with Ibuprofen 600mg Q6h, Percocet 5/325mg Q6hr PRN for pain management. -Colace/simethicone- Constipation/flatus -Follow up with Dr. Lorenzo at [facility] in 1wk for wound check -Anticipated discharge 08/01/18 Case discussed with attending. -Dr. Dejuan Lorenzo PGY-1 Vital Signs Provider PP: Reviewed
[2018-08-01] MEDS: Simethicone 80 mg Chewtab PO SCH ×2 (04:06→09:12)
--- NOTE | 2018-08-01 07:23 | OBDCSUM ---
Datetime: 08/01/2018 07:21 Discharged to, Provider: Home Follow up at, Provider: Dr. Lorenzo Disch Instr Diet: Regular Discharge Instructions, Provider: Routine instructions given Discharge Diagnosis, Provider: Delivery Discharge Time: 08/01/2018 07:21 Follow up in weeks, Provider: 1 week
--- NOTE | 2018-08-01 07:23 | OBPPN ---
Datetime: 08/01/2018 07:17 PP Pain Prov: Within normal limits PP Nausea Prov: Denies PP Flatus Prov: Yes PP BM Prov: Yes PP Abdomen/Uterus Prov: Normal PP Lochia Prov: Normal PP Extremities Prov: Normal PP C/S Incision Prov: Normal PP Comments Phys Exam Prov: Incision: intact PP Impression Prov: Normal progression PP Plan Prov: Discharge PP Progress Note Prov: POD 4 s/p primary c/s for severe PEC at36+ weeks, doing well, breast pumping and bottle feeding Discharge home today Vital Signs Provider PP: Reviewed
[2018-08-01] MEDS: Multivitamin With Minerals Tab PO SCH (09:12)
[2018-08-01] MEDS ORDERED: Measles, Mumps, and Rubella 0.5 ML VIAL SC ONE (10:00)
[2018-08-01 17:48] VITALS: BP 127/76; PULSE 88; RESP 18; TEMP 98
== END 2018-08-01 12:55 | disposition home or self-care (01) | DRG 788 ==
LOC: H.EROB2 14:26 → H.L&D 14:27 → H.EROB2 14:40 → H.ERHOLD 14:41 → H.L&D 15:47 → H.OB/GYN 23:00
PROVIDERS: ADMIT Obstetrics & Gynecology; ATTEND Obstetrics & Gynecology
PROC: 10D00Z1 Extraction of Products of Conception, Low, Open Approach (ICD-10-PCS; principal; 2018-07-28)
DX: O14.14 Severe pre-eclampsia complicating childbirth (principal); O60.14X0 Preterm labor third trimester with preterm delivery third trimester, not applicable or unspecified; O24.429 Gestational diabetes mellitus in childbirth, unspecified control; Z3A.36 36 weeks gestation of pregnancy; Z37.0 Single live birth; O09.523 Supervision of elderly multigravida, third trimester; Z91.19 Patient's noncompliance with other medical treatment and regimen; K59.00 Constipation, unspecified